=== PATIENT | male | born 1975 | race Caucasian/White ===

== ENCOUNTER 2019-03-26 12:40 | Emergency (ER) | payer OTHER ==
--- NOTE | 2019-03-26 13:25 | EDM.PDOC ---
ED HPI GENERAL MEDICAL PROBLEM - General Chief Complaint: Chest Pain Stated Complaint: CHEST PAIN Time Seen by Provider: 03/26/19 13:23 Source of Information: Reports: Patient History Limitations: Reports: No Limitations - History of Present Illness INITIAL COMMENTS - FREE TEXT/NARRATIVE: pt arrived with a history of 3 or 4 episodes of chf. He has had a low ejection fraction. The reasons for thr CHF is unknown. Onset: Today Duration: Hour(s): Location: Reports: Chest, Other ( sob. ) Associated Symptoms: Reports: Chest Pain, Shortness of Breath Left Chest Pain Score (Numeric/FACES): 2 - Related Data Allergies Allergy/AdvReac Type Severity Reaction Status Date / Time No Known Allergies Allergy Verified 03/26/19 12:51 Home Meds: Home Meds Aspirin [Ruth Chewable Aspirin] 1 tab PO DAILY 03/26/19 [History] Escitalopram [Lexapro] 1 tab PO DAILY 03/26/19 [History] Ibuprofen [Motrin] 1 tab PO ASDIRECTED 03/26/19 [History] Past Medical History Cardiovascular History: Reports: Heart Failure Gastrointestinal History: Reports: Hiatal Hernia - Past Surgical History Cardiovascular Surgical History: Reports: Other (See Below) Other Cardiovascular Surgeries/Procedures: "2 heart cath", 5 stress tests, 6 echo. GI Surgical History: Reports: Hernia, Abdominal, Hernia, Inguinal Social & Family History - Tobacco Use Smoking Status *Q: Never Smoker - Recreational Drug Use Recreational Drug Use: No ED ROS GENERAL - Review of Systems Review Of Systems: See Below Constitutional: Reports: Fatigue, Other (pt had a episode of chest pain. ) HEENT: Reports: No Symptoms Respiratory: Reports: Shortness of Breath Cardiovascular: Reports: Chest Pain, Dyspnea on Exertion Endocrine: Reports: No Symptoms GI/Abdominal: Reports: No Symptoms : Reports: No Symptoms Musculoskeletal: Reports: No Symptoms ED EXAM, GENERAL - Physical Exam Exam: See Below Free Text/Narrative:: pt arrived with a history of chest pain which lasted about 45 seconds. He is pain free at this time. Pt has a history of chf several times. The reason for the CHF is unknown. He has the sensation that his heart stops briefly at times. Exam Limited By: No Limitations General Appearance: Alert, No Apparent Distress, Anxious, Other (pupils are equal nd reactive. ) Ears: Normal TMs Nose: Normal Inspection Throat/Mouth: Normal Inspection Head: Atraumatic Neck: Normal Inspection Respiratory/Chest: No Respiratory Distress, Other (no rales or wheezes could be heard. ) Cardiovascular: Regular Rate, Rhythm GI/Abdominal: Soft, Non-Tender (Male) Exam: Deferred Rectal (Males) Exam: Deferred Back Exam: Normal Inspection Extremities: Normal Inspection, No Pedal Edema Neurological: Alert, Oriented, Normal Cognition Psychiatric: Normal Affect Course - Vital Signs Last Recorded V/S: Last Vital Signs Temp 35.5 C 03/26/19 12:48 Pulse 51 L 03/26/19 13:32 Resp 15 03/26/19 13:32 BP 124/76 03/26/19 13:32 Pulse Ox 95 03/26/19 13:32 - Orders/Labs/Meds Labs: Laboratory Tests 03/26/19 03/26/19 03/26/19 Range/Units 12:47 12:48 12:48 WBC 5.5 (4.5-11.0) K/uL RBC 4.77 (4.30-5.90) M/uL Hgb 14.5 (12.0-15.0) g/dL Hct 42.4 (40.0-54.0) % MCV 89 (80-98) fL MCH 30 (27-31) pg MCHC 34 (32-36) % Plt Count 137 L (150-400) K/uL Neut % (Auto) 54 (36-66) % Lymph % (Auto) 35 (24-44) % Petroleum % (Auto) 8 H (2-6) % Eos % (Auto) 4 (2-4) % Baso % (Auto) 1 (0-1) % D-Dimer, Quantitative (0.0-400.0) ng/mL Sodium (140-148) mmol/L Potassium (3.6-5.2) mmol/L Chloride (100-108) mmol/L Carbon Dioxide (21-32) mmol/L Anion Gap (5.0-14.0) mmol/L BUN (7-18) mg/dL Creatinine (0.8-1.3) mg/dL Est Cr Clr Drug Dosing mL/min Estimated GFR (MDRD) (>60) Glucose (74-106) mg/dL Calcium (8.5-10.1) mg/dL Total Bilirubin (0.2-1.0) mg/dL AST (15-37) U/L ALT (12-78) U/L Alkaline Phosphatase (46-116) U/L Troponin I < 0.017 (0.000-0.056) ng/mL NT-Pro-B Natriuret Pep 56 (5-125) pg/mL Total Protein (6.4-8.2) g/dL Albumin (3.4-5.0) g/dL Globulin (2.3-3.5) g/dL Albumin/Globulin Ratio (1.2-2.2) 03/26/19 03/26/19 Range/Units 12:48 12:48 WBC (4.5-11.0) K/uL RBC (4.30-5.90) M/uL Hgb (12.0-15.0) g/dL Hct (40.0-54.0) % MCV (80-98) fL MCH (27-31) pg MCHC (32-36) % Plt Count (150-400) K/uL Neut % (Auto) (36-66) % Lymph % (Auto) (24-44) % Petroleum % (Auto) (2-6) % Eos % (Auto) (2-4) % Baso % (Auto) (0-1) % D-Dimer, Quantitative < 100 (0.0-400.0) ng/mL Sodium 142 (140-148) mmol/L Potassium 4.0 (3.6-5.2) mmol/L Chloride 104 (100-108) mmol/L Carbon Dioxide 29 (21-32) mmol/L Anion Gap 9.4 (5.0-14.0) mmol/L BUN 13 (7-18) mg/dL Creatinine 1.1 (0.8-1.3) mg/dL Est Cr Clr Drug Dosing 95.04 mL/min Estimated GFR (MDRD) > 60 (>60) Glucose 112 H (74-106) mg/dL Calcium 8.8 (8.5-10.1) mg/dL Total Bilirubin 0.5 (0.2-1.0) mg/dL AST 20 (15-37) U/L ALT 44 (12-78) U/L Alkaline Phosphatase 72 (46-116) U/L Troponin I (0.000-0.056) ng/mL NT-Pro-B Natriuret Pep (5-125) pg/mL Total Protein 6.6 (6.4-8.2) g/dL Albumin 3.7 (3.4-5.0) g/dL Globulin 2.9 (2.3-3.5) g/dL Albumin/Globulin Ratio 1.3 (1.2-2.2) - Re-Assessments/Exams Free Text/Narrative Re-Assessment/Exam: 03/26/19 14:05 pt arrived concerned about 45 seconds of chest pain. He is painfree at this time but he is exhausted. 04/01/19 18:22 pt did return for a echo and his ejection fraction was 55% which has not changed much. 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 Departure - Departure Time of Disposition: 13:50 Disposition: Home, Self-Care 01 Condition: Fair Clinical Impression: Chest pain, History of congestive heart failure Instructions: Nonspecific Chest Pain, [id number], Echocardiogram Referrals: PCP,None [Primary Care Provider] - Forms: ED Department Discharge Care Plan Goals: Return to clinic for an echo tomorrow @7:15. Check in at the radiology window. Return to clinic if patient should have more extensive chest pain. get the results of the event recorder that was done previously and he never got the results. Whoever he sees in cardiology should have that result and perhaps consider another event recorder as the pt is feeling at times like his rhythm is being reset.
--- NOTE | 2019-03-26 13:32 | CRLCR ---
CHEST 1 VIEW AP INDICATION: Shortness of breath. IMPRESSION: Normal heart size and vascular pattern. Lungs are clear. No pneumothorax or pleural effusion. ECG Monitor leads projected over the patient. Dictated by Chao Huddleston MD @ Mar 26 2019 1:30PM Signed by Dr. Chao Huddleston @ Mar 26 2019 1:31PM
== END 2019-03-26 14:17 | disposition home or self-care (01) ==
LOC: JP.ED 12:40
DX: R07.9 Chest pain, unspecified (principal); I50.9 Heart failure, unspecified; Z79.82 Long term (current) use of aspirin; Z79.899 Other long term (current) drug therapy
CPT/HCPCS: 36415; 71045; 80053; 83880; 84484; 85025; 85379; 93005; 93010; 99284; 99285-25